=== PATIENT | female | born 1960 | race Native Hawaiian/Other Pacific Islander ===

== ENCOUNTER 2020-02-14 08:38 | Outpatient (CLI) | payer OTHER | END 2020-02-14 19:08 | disposition home or self-care (01) | LOC: MRI 08:38 | DX: M25.562 Pain in left knee (principal) ==

== ENCOUNTER 2020-07-05 08:06 | Outpatient (CLI) | payer OTHER ==
[~2020-07-05] VITALS: Ht 162.6 cm; Wt 102.1 kg
== END 2020-07-05 19:26 | disposition home or self-care (01) ==
LOC: NM 08:06
DX: R07.9 Chest pain, unspecified (principal)
CPT/HCPCS: A9500; J2785